=== PATIENT | male | born 1970 | race Two or more races ===

== ENCOUNTER 2020-06-01 19:54 | Emergency (ER) | payer OTHER ==
[~2020-06-01] VITALS: Ht 172.7 cm; Wt 74.8 kg
[2020-06-01] MEDS ORDERED: LEVOTHYROXINE50 MCG PO (20:31)
[2020-06-02] MEDS ORDERED: ADULT LOW DOSE81 M1 PO (00:36)
[2020-06-02] MEDS ORDERED: PEPCID AC20 MG PO (00:36)
[2020-06-02] MEDS ORDERED: ORPHENADRINE C100 MG PO (00:36)
== END 2020-06-02 02:16 | disposition home or self-care (01) ==
LOC: ER 19:54
DX: R07.89 Other chest pain (principal); R06.02 Shortness of breath

== ENCOUNTER 2021-04-27 22:36 | Emergency (ER) | payer OTHER ==
[~2021-04-27] VITALS: Ht 172.7 cm; Wt 74.8 kg
[~2021-04-27 22:36] MED LIST: ADULT LOW DOSE81 M1 PO; LEVOTHYROXINE50 MCG PO; ORPHENADRINE C100 MG PO; PEPCID AC20 MG PO
[2021-04-28] MEDS ORDERED: KETO10TA2 PO (02:06)
== END 2021-04-28 02:14 ==
LOC: ER 22:36
DX: R07.89 Other chest pain (principal)

== ENCOUNTER → 2022-04-26 | Outpatient (CLI) | payer OTHER ==
[~2022-04-26] MED LIST changes: +KETO10TA2 PO
== END | disposition home or self-care (01) ==
LOC: NUCLEAR 11:00
DX: M81.0 Age-related osteoporosis without current pathological fracture (principal)